=== PATIENT | female | born 2000 | race Caucasian/White ===

== ENCOUNTER → 2019-08-25 | Outpatient (CLI) | payer BC, MEDICAID ==
[2019-08-25 10:51] LABS: HEMOGLOBIN 11.7 G/DL (11.5-16.0); MEAN CORPUSCULAR HEMOGLOBIN 28 PG (25-34); WHITE BLOOD COUNT 4.3 10^3/uL (4.3-11.0)
[2019-08-25 10:52] LABS: BASOPHILS % (AUTO) 0 % (0-10); EOSINOPHILS # (AUTO) 0.2 10^3/uL (0.0-0.3); EOSINOPHILS % (AUTO) 5 % (0-10); HEMATOCRIT 35 % (35-52); LYMPHOCYTES # (AUTO) 1.5 X 10^3 (1.0-4.0); LYMPHOCYTES % (AUTO) 35 % (12-44); MEAN CORPUSCULAR HGB CONC 34 G/DL (32-36); MEAN CORPUSCULAR VOLUME 84 FL (80-99); MEAN PLATELET VOLUME 9.5 FL (7.4-10.4); MONOCYTES # (AUTO) 0.2 X 10^3 (0.0-1.0); MONOCYTES % (AUTO) 5 % (0-12); NEUTROPHILS # (AUTO) 2.3 X 10^3 (1.8-7.8); NEUTROPHILS % (AUTO) 55 % (42-75); PLATELET COUNT 178 10^3/uL (130-400); RED CELL DISTRIBUTION WIDTH 11.9 % (10.0-14.5)
== END ==
LOC: LAB FS 10:09
PROVIDERS: ATTEND Family Medicine
DX: Z34.80 Encounter for supervision of other normal pregnancy, unspecified trimester (principal); Z3A.00 Weeks of gestation of pregnancy not specified
CPT/HCPCS: 36415; 80055; 86703; 87077; 87088

== ENCOUNTER → 2019-09-22 | Outpatient (CLI) | payer BC, MEDICAID | LOC: LAB FS 15:37 | PROVIDERS: ATTEND Family Medicine | DX: Z34.90 Encounter for supervision of normal pregnancy, unspecified, unspecified trimester (principal); Z3A.00 Weeks of gestation of pregnancy not specified | CPT/HCPCS: 87491; 87591 ==

== ENCOUNTER → 2019-11-27 | Outpatient (CLI) | payer BC, MEDICAID | LOC: LAB FS 16:21 | PROVIDERS: ATTEND Family Medicine | DX: Z34.82 Encounter for supervision of other normal pregnancy, second trimester (principal) | CPT/HCPCS: 36415; 82105; 84702; 86336 ==

== ENCOUNTER 2020-01-14 23:51 | Emergency (ER) | payer BC, MEDICAID ==
[~2020-01-14] VITALS: Ht 154.9 cm; Wt 85.3 kg
--- NOTE | 2020-01-14 23:54 | ED General ---
General Stated Complaint: RASH Source of Information: Patient History of Present Illness Date Seen by Provider: Jan 14, 2020 Time Seen by Provider: 23:54 Initial Comments Patient is a 19 y/o female who is 27 weeks gestation and comes to the ER today c/o urticarial rash. She had onset of symptoms around 2 pm earlier today. Sx started on wrists and have expanded to arms, thighs, and torso. No new exposures that she is aware of. No prior history of allergies, asthma, or similar reactions. She has taken some benadryl today without relief of symptoms. No swelling of the lips, tongue or airway. Allergies and Home Medications Allergies Coded Allergies: No Known Drug Allergies (Unverified , 01/15/20) Home Medications Loratadine 10 Mg Tablet, 10 MG PO DAILY Prescribed by: DELGADO MEDRANO on 01/15/20 0044 Prednisone 20 Mg Tab, 40 MG PO DAILY Prescribed by: DELGADO MEDRANO on 01/15/20 0043 Patient Home Medication List Home Medication List Reviewed: Yes Review of Systems Review of Systems Constitutional: no symptoms reported EENTM: no symptoms reported Respiratory: no symptoms reported Cardiovascular: no symptoms reported : Yes Musculoskeletal: no symptoms reported Skin: see HPI Physical Exam Vital Signs Vital Signs - First Documented 01/15/20 00:01 Temp 36.3 Pulse 73 Resp 17 B/P (MAP) 113/66 (82) O2 Delivery Room Air Capillary Refill : Height, Weight, BMI Height: '" Weight: lbs. oz. kg; BMI Method: General Appearance: No Apparent Distress, WD/WN HEENT: PERRL/EOMI Neck: Supple Respiratory: Lungs Clear Cardiovascular: Regular Rate, Rhythm, No Murmur Skin: Other (urticarial rash over proximal thighs, torso, wrists, arms. No airway involvement) Progress/Results/Core Measures Suspected Sepsis SIRS Temperature: Pulse: Respiratory Rate: Blood Pressure / Mean: Results/Orders My Orders Orders - DELGADO MEDRANO DO Famotidine Injection (Pepcid Injection) (01/15/20 00:15) Diphenhydramine Injection (Benadryl Inje (01/15/20 00:15) Methylprednisolone Sod Succ (Solu-Medrol (01/15/20 00:15) Ns Iv 1000 Ml (Sodium Chloride 0.9%) (01/15/20 00:15) Ed Iv/Invasive Line Start (01/15/20 00:07) Medications Given in ED Current Medications Medications Dose Ordered Sig/Amor Route Start Time Stop Time Status Last Admin Dose Admin Diphenhydramine HCl 25 mg ONCE ONCE IM 01/15/20 00:15 01/15/20 00:16 DC 01/15/20 00:21 25 MG Famotidine 20 mg ONCE ONCE IVP 01/15/20 00:15 01/15/20 00:16 DC 01/15/20 00:21 20 MG Methylprednisolone Sodium Succinate 125 mg ONCE ONCE IVP 01/15/20 00:15 01/15/20 00:16 DC 01/15/20 00:21 125 MG Vital Signs/I&O 01/15/20 00:01 Temp 36.3 Pulse 73 Resp 17 B/P (MAP) 113/66 (82) O2 Delivery Room Air Capillary Refill : Progress Note : Time: 00:19 Progress Note Patient is examined on arrival to her room. Urticarial rash in areas described but no airway involvement. No related complaints. Will place iv and treat with solumedrol, pepcid, benadryl. 00:30: Patient now with visibly improving symptoms and subjectively feels better. Discharged home with Rx for short course of prednisone and advised to take only if her symptoms persisted. Also claritin and encouraged to continue to use benadryl as needed. Return to ER as needed. Departure Impression Primary Impression: Urticaria Disposition: 01 HOME, SELF-CARE Condition: Improved Departure-Patient Inst. Scripts Loratadine (Claritin) 10 Mg Tablet 10 MG PO DAILY for 7 Days, #10 TAB Prov: DELGADO MEDRANO DO 01/15/20 Prednisone (Prednisone) 20 Mg Tab 40 MG PO DAILY for 5 Days, #10 TAB 0 Refills Prov: DELGADO MEDRANO DO 01/15/20 DELGADO MEDRANO DO Jan 14, 2020 23:54
--- OUTSIDE RECORDS SUMMARY | 2020-01-14 23:59 | XMS REPORT | Continuity of Care Document ---
Author Organization Unknown Address Unknown Phone Unavailable Allergies There is no data. Medications There is no data. Problems Date Dx Coded Attending Type Code Diagnosis Diagnosed By 08/30/2019 OLE BOND MD Ot Z34.80 ENCOUNTER FOR SUPRVSN OF NORMAL PREGNANC 08/30/2019 OLE BOND MD Ot Z3A.00 WEEKS OF GESTATION OF NOT SPEC 09/21/2019 OLE BOND MD Ot Z34.80 ENCOUNTER FOR SUPRVSN OF NORMAL PREGNANC 09/21/2019 OLE BOND MD Ot Z3A.00 WEEKS OF GESTATION OF NOT SPEC 09/22/2019 OLE BOND MD Ot Z34.80 ENCOUNTER FOR SUPRVSN OF NORMAL PREGNANC 09/22/2019 OLE BOND MD Ot Z3A.00 WEEKS OF GESTATION OF NOT SPEC 09/28/2019 OLE BOND MD Ot Z34.80 ENCOUNTER FOR SUPRVSN OF NORMAL PREGNANC 09/28/2019 OLE BOND MD Ot Z3A.00 WEEKS OF GESTATION OF NOT SPEC 09/28/2019 OLE BOND MD Ot Z34.90 ENCNTR FOR SUPRVSN OF NORMAL , 09/28/2019 OLE BOND MD Ot Z3A.00 WEEKS OF GESTATION OF NOT SPEC 09/30/2019 OLE BOND MD Ot Z34.80 ENCOUNTER FOR SUPRVSN OF NORMAL PREGNANC 09/30/2019 OLE BOND MD Ot Z3A.00 WEEKS OF GESTATION OF NOT SPEC 10/11/2019 OLE BOND MD Ot Z34.80 ENCOUNTER FOR SUPRVSN OF NORMAL PREGNANC 10/11/2019 OLE BOND MD Ot Z3A.00 WEEKS OF GESTATION OF NOT SPEC 10/12/2019 OLE BOND MD Ot Z34.90 ENCNTR FOR SUPRVSN OF NORMAL , 10/12/2019 OLE BOND MD Ot Z3A.00 WEEKS OF GESTATION OF NOT SPEC 10/14/2019 OLE BOND MD Ot Z34.90 ENCNTR FOR SUPRVSN OF NORMAL , 10/14/2019 OLE BOND MD Ot Z3A.00 WEEKS OF GESTATION OF NOT SPEC 10/24/2019 OLE BOND MD Ot Z34.90 ENCNTR FOR SUPRVSN OF NORMAL , 10/24/2019 OLE BOND MD Ot Z3A.00 WEEKS OF GESTATION OF NOT SPEC 11/29/2019 OLE BOND MD Ot Z34.82 ENCOUNTER FOR SUPRVSN OF NORMAL PREGNANC 12/11/2019 OLE BOND MD Ot Z34.80 ENCOUNTER FOR SUPRVSN OF NORMAL PREGNANC 12/11/2019 OLE BOND MD Ot Z3A.00 WEEKS OF GESTATION OF NOT SPEC 12/11/2019 OLE BOND MD Ot Z34.90 ENCNTR FOR SUPRVSN OF NORMAL , 12/11/2019 OLE BOND MD Ot Z3A.00 WEEKS OF GESTATION OF NOT SPEC 12/11/2019 OLE BOND MD Ot Z34.82 ENCOUNTER FOR SUPRVSN OF NORMAL PREGNANC 12/27/2019 OLE BOND MD Ot Z34.82 ENCOUNTER FOR SUPRVSN OF NORMAL PREGNANC 12/29/2019 OLE BOND MD Ot Z34.82 ENCOUNTER FOR SUPRVSN OF NORMAL PREGNANC Procedures There is no data. Results Test Result Range Chlamydia trachomatis DNA detection by p robe and signal amplification method - 09/22/19 15:30 Chlamydia trachomatis DNA detection by p robe and target amplification method Not Detected Not Detected Neisseria gonorrhoeae DNA detection by p robe and signal amplification method - 09/22/19 15:30 Gonorrhea amp DNA-urine Not Detected No t Detected Encounters ACCT No. Visit Date/Time Discharge Status Pt. Type Provider Facility Loc./Unit Complaint [id number] 11/27/2019 16:21:00 020 23:59:59 CLS Outpatient OLE BOND MD [facility] FS Z34.82 [id number] 09/22/2019 15:37:00 020 23:59:59 CLS Outpatient RONDA MERIDA, OLE Jhaveri [facility] FS [id number] 08/25/2019 10:09:00 020 23:59:59 CLS Outpatient RONDA MERIDA, OLE Jhaveri [facility] FS Z34.80
[2020-01-15] MEDS ORDERED: NS IV 1000 ML 1,000 ML IV SCH (00:15)
[2020-01-15] MEDS ORDERED: FAMOTIDINE 20MG/2ML IV (PEPCID) IVP ONE (00:15)
[2020-01-15] MEDS ORDERED: diphenhydrAMINE 50 MG/ML INJ (BENADRYL) IM ONE (00:15)
[2020-01-15] MEDS ORDERED: methylPREDNISolone 125 MG (Solu-MEDROL) VIAL IVP ONE (00:15)
[2020-01-15] MEDS ORDERED: PRD20T PO (00:43)
[2020-01-15] MEDS ORDERED: LORA10TA76 PO (00:44)
[2020-01-15 00:57] VITALS: BP 118/72
== END 2020-01-15 00:57 | disposition home or self-care (01) ==
LOC: EDUNIT# 23:51 → ER FS 23:54
DX: O99.712 Diseases of the skin and subcutaneous tissue complicating pregnancy, second trimester (principal); L50.9 Urticaria, unspecified; Z3A.27 27 weeks gestation of pregnancy

== ENCOUNTER → 2020-01-26 | Outpatient (CLI) | payer BC, MEDICAID ==
[~2020-01-26] MED LIST: LORA10TA76 PO; PRD20T PO
[2020-01-26 16:53] LABS: HEMOGLOBIN 9.7 G/DL (11.5-16.0); MEAN PLATELET VOLUME 8.8 FL (7.4-10.4); RED CELL DISTRIBUTION WIDTH 12.8 % (10.0-14.5)
== END ==
LOC: LAB FS 15:52
PROVIDERS: ATTEND Family Medicine
DX: Z34.83 Encounter for supervision of other normal pregnancy, third trimester (principal); Z3A.00 Weeks of gestation of pregnancy not specified
CPT/HCPCS: 36415; 82950; 85027; 86780

== ENCOUNTER 2020-03-12 21:28 | Outpatient (CLI) | payer BC, MEDICAID ==
[~2020-03-12] VITALS: Ht 157.5 cm; Wt 88.5 kg
--- NOTE | 2020-03-12 21:35 | NUR ---
JENNIFER MONTOYA presented to unit via ambulatory from ED, accompanied by grandmother , with c/o CONTRACTIONS. JENNIFER MONTOYA weighed, gowned, voided, and to bed. EFHM and TOCO applied, VS taken. JENNIFER MONTOYA oriented to bed controls, call light, TV, heat, and A/C controls. above and further assessments carried out per hmichael maxwell.
[2020-03-12 22:06] VITALS: BP 115/64
[2020-03-12 22:10] VITALS: BP 115/64
--- NOTE | 2020-03-12 22:11 | NUR ---
Pt c/o ctx since 1600. States they have been irregular. Pt has not timed her contractions and denies any pain at this time. States with her last delivery she was dilated to 5cm on her day of induction and is concerned she wont feel ctx when she goes into labor. SVE performed, cervix closed, thick. Pt is unable to void at this time.
[2020-03-12] MEDS ORDERED: FERR-84 PO (22:16)
[2020-03-12] MEDS ORDERED: PREN-8 PO (22:16)
--- NOTE | 2020-03-12 22:52 | NUR ---
notified of pt's arrival and complaints. tracing review with Dr. Martinez still denies any pain. Discharge order received.
--- NOTE | 2020-03-12 23:05 | NUR ---
Discharge instructions verbalized with pt. Labor precautions given. Pt will follow up with in the office. Pt dc'd home with family at side.
--- NOTE | 2020-03-13 08:14 | Physician Query-Final Dx ---
Clinic Account Progress/Dx Physician Query: Please give diagnosis Please include # weeks gestation Date of Service Mar 12, 2020 at 21:28 JOCELIN DARDEN Mar 13, 2020 08:14
== END 2020-03-12 23:05 | disposition home or self-care (01) ==
LOC: WSo 21:28 → LDRP 21:28 → WSo 23:05
PROVIDERS: ATTEND Family Medicine
DX: O62.9 Abnormality of forces of labor, unspecified (principal); Z3A.35 35 weeks gestation of pregnancy

== ENCOUNTER 2020-03-30 19:39 | Outpatient (CLI) | payer BC, MEDICAID ==
[~2020-03-30] VITALS: Ht 157.4 cm; Wt 91.3 kg
[~2020-03-30 19:39] MED LIST changes: +FERR-84 PO; +PREN-8 PO
--- NOTE | 2020-03-30 19:44 | NUR ---
JENNIFER MONTOYA presented to unit via ambulation from ED, with c/o CONTRACTIONS. JENNIFER MONTOYA weighed, gowned, voided, and to bed. EFHM and TOCO applied, VS taken. JENNIFER MONTOYA oriented to bed controls, call light, TV, heat, and A/C controls.
[2020-03-30 20:30] VITALS: BP 115/70
[2020-03-30 21:02] LABS: BILIRUBIN,URINE NEGATIVE (NEGATIVE); CLARITY,URINE CLEAR; COLOR,URINE YELLOW; GLUCOSE, URINE (UA) NEGATIVE (NEGATIVE); KETONES,URINE NEGATIVE (NEGATIVE); LEUKOCYTE ESTERASE ,URINE 2+ (NEGATIVE); NITRITE,URINE NEGATIVE (NEGATIVE); PROTEIN,URINE NEGATIVE (NEGATIVE)
[2020-03-30 21:16] LABS: BACTERIA,URINE FEW /HPF; RBC,URINE 0-2 /HPF
--- NOTE | 2020-03-30 22:16 | NUR ---
Discharge instructions reviewed with patient. All patient's questions answered. Pt denies any concerns. Encouraged to call with any questions or concerns. Signature sheet signed, placed on chart. Pt denied wanting wheelchair. Pt ambulating off unit at time to private vehicle. No distress noted.
[2020-03-30 22:34] VITALS: BP 115/70
[2020-04-03] MEDS ORDERED: IBUP-844 PO (12:06)
== END 2020-03-30 22:16 | disposition home or self-care (01) ==
LOC: LDRP 19:39 → WSo 19:39
PROVIDERS: ATTEND Obstetrics & Gynecology
DX: O62.9 Abnormality of forces of labor, unspecified (principal); Z3A.37 37 weeks gestation of pregnancy
CPT/HCPCS: 81000; G0463; 99213

== ENCOUNTER 2020-07-26 01:08 | Emergency (ER) | payer BC, MEDICAID ==
[~2020-07-26] VITALS: Ht 154.9 cm; Wt 72.6 kg
[~2020-07-26 01:08] MED LIST changes: +IBUP-844 PO
[2020-07-26 01:48] VITALS: BP_SYST 113; BP_SYST 117; BP_SYST 119; BP_DIAS 65; BP_DIAS 67; BP_DIAS 68
--- NOTE | 2020-07-26 01:51 | ED General ---
General Chief Complaint: Neurological Problems Stated Complaint: WEAKNESS Nursing Triage Note: PT AMBULATE TO ROOM FS02 WITH C/O WEAKNESS X1 WEEK, CHEST TIGHTNESS STARTING YESTERDAY, NAUSEA, AND SPOTS IN HER VISION. PT STATES THAT SHE HAS CONTACTED PER PCP AND WAS NOT ABLE TO GET AN APPT UNTIL "I THINK" NEXT WEEK. Nursing Sepsis Screen: No Definite Risk Source of Information: Patient History of Present Illness Date Seen by Provider: Jul 26, 2020 Time Seen by Provider: 01:09 Initial Comments 19 yo female presenting to the ED with complaints of feeling weak for over a week. She has been feeling like she was going to pass out and like she was dizzy, especially with standing and changing positions. She has stumbled a few times and had to catch herself to keep from falling. She had noticed spots in her vision and has felt more light headed. She thought this might be related to her iron deficiency anemia that started during . She delivered her baby about 4 months ago. She feels like she is taking 5 times the amount of iron that a person is supposed to take because Dr. Bond is having her take 65 mg Iron pills twice a day, so the patient cut back to just once a day on her own. Since yesterday the patient has felt like she had chest tightness, nausea and low back pains. She denies cough, fever, chills, pain with urination, vaginal bleeding, diarrhea. She felt like was going to pass out and reports that when she called Dr. Bond's clinic during the day on they could not get her an appointment to be seen until next week. She is very concerned that she is taking too much Iron and it is causing her to feel this way and thinks she needs her iron levels checked so she came in to be seen in the ED tonight when she felt like she was going to pass out again. Allergies and Home Medications Allergies Coded Allergies: No Known Drug Allergies (Unverified , 01/15/20) Home Medications Ibuprofen 600 Mg Tablet, 600 MG PO Q6HR Prescribed by: OLE BOND on 04/03/20 1206 Patient Home Medication List Home Medication List Reviewed: Yes Review of Systems Review of Systems Constitutional: see HPI; No chills; dizziness (with standing and changing positions); No fever; weakness (general) EENTM: see HPI; No eye pain Respiratory: see HPI (chest tightness); No cough, No short of breath Cardiovascular: see HPI; No syncope (near syncope sensation) Gastrointestinal: nausea; No vomiting Genitourinary: No dysuria Musculoskeletal: see HPI, back pain (muscles in low back are tender to palpation) Skin: no symptoms reported Psychiatric/Neurological: Anxiety (worried about feeling like she might pass out) Hematologic/Lymphatic: Anemia (reports iron deficient anemia and not having repeat testing done for over 6 months); Denies Easy Bleeding, Denies Easy Bruising Past Myowfsq-Hbdksp-Welzui Hx Past Med/Social Hx: Reviewed Nursing Past Med/Soc Hx Patient Social History Alcohol Use: Denies Use Smoking Status: Never a Smoker 2nd Hand Smoke Exposure: No Recent Infectious Disease Expo: No Recent Hopitalizations: No Immunizations Up To Date PED Vaccines UTD: No Date of Influenza Vaccine: Apr 01, 2020 Seasonal Allergies Seasonal Allergies: Yes Past Medical History Surgeries: Yes (RIGHT ARM FX) Orthopedic Respiratory: No Cardiac: No Neurological: No Female Reproductive Disorders: Denies Sexually Transmitted Disease: No HIV/AIDS: No Genitourinary: No Gastrointestinal: No Musculoskeletal: Yes (RIGHT ARM FX) Fractures Endocrine: No HEENT: No Cancer: No Psychosocial: Yes (no current medications) Anxiety, Depression Integumentary: Yes Eczema Blood Disorders: Yes (low iron) Adverse Reaction/Blood Tranf: No Family Medical History Psychosocial problem 19 FATHER (depression) Sinus bradycardia G8 BROTHER Thyroid disease 19 MOTHER Physical Exam Vital Signs Vital Signs - First Documented 07/26/20 01:20 Temp 36.4 Pulse 85 Resp 18 B/P (MAP) 121/78 (92) O2 Delivery Room Air Capillary Refill : Less Than 3 Seconds Height, Weight, BMI Height: '" Weight: lbs. oz. kg; 30.00 BMI Method: General Appearance: No Apparent Distress, WD/WN, Anxious HEENT: PERRL/EOMI, Normal ENT Inspection; No Photophobia Neck: Full Range of Motion, Normal Inspection, Non Tender, Supple Respiratory: Chest Non Tender, Lungs Clear, Normal Breath Sounds, No Accessory Muscle Use, No Respiratory Distress Cardiovascular: Regular Rate, Rhythm, No Edema, No JVD, No Murmur, Normal Peripheral Pulses Gastrointestinal: Normal Bowel Sounds, No Pulsatile Mass, Non Tender, Soft Rectal: Deferred Back: No CVA Tenderness, No Vertebral Tenderness, Other (tender to palpation ov er the muscles in the lower back) Extremity: Normal Capillary Refill, Normal Inspection, Normal Range of Motion, Non Tender, No Pedal Edema Neurologic/Psychiatric: Alert, Oriented x3, No Motor/Sensory Deficits, 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; No Abnormal Gait; Other (anxious) Skin: Normal Color, Warm/Dry Progress/Results/Core Measures Suspected Sepsis Recent Fever Within 48 Hours: No Infection Criteria Present: None New/Unexplained Altered Menta: No Sepsis Screen: No Definite Risk SIRS Temperature: Pulse: 85 Respiratory Rate: 18 Laboratory Tests 07/26/20 01:41: White Blood Count 7.3 Blood Pressure 121 /78 Mean: 92 Laboratory Tests 07/26/20 01:41: Creatinine 0.83, INR Comment 1.0, Platelet Count 289, Total Bilirubin 0.2 Results/Orders Lab Results Laboratory Tests Test 07/26/20 01:41 07/26/20 01:52 Range/Units White Blood Count 7.3 4.3-11.0 10^3/uL Red Blood Count 4.49 4.35-5.85 10^6/uL Hemoglobin 12.8 11.5-16.0 G/DL Hematocrit 39 35-52 % Mean Corpuscular Volume 87 80-99 FL Mean Corpuscular Hemoglobin 29 25-34 PG Mean Corpuscular Hemoglobin Concent 33 32-36 G/DL Red Cell Distribution Width 13.0 10.0-14.5 % Platelet Count 289 130-400 10^3/uL Mean Platelet Volume 9.1 7.4-10.4 FL Immature Granulocyte % (Auto) 0 % Neutrophils (%) (Auto) 45 42-75 % Lymphocytes (%) (Auto) 45 H 12-44 % Monocytes (%) (Auto) 7 0-12 % Eosinophils (%) (Auto) 2 0-10 % Basophils (%) (Auto) 1 0-10 % Neutrophils # (Auto) 3.3 1.8-7.8 X 10^3 Lymphocytes # (Auto) 3.3 1.0-4.0 X 10^3 Monocytes # (Auto) 0.5 0.0-1.0 X 10^3 Eosinophils # (Auto) 0.2 0.0-0.3 10^3/uL Basophils # (Auto) 0.1 0.0-0.1 10^3/uL Immature Granulocyte # (Auto) 0.0 0.0-0.1 10^3/uL Prothrombin Time 13.1 12.2-14.7 SEC INR Comment 1.0 0.8-1.4 Activated Partial Thromboplast Time 30 24-35 SEC Sodium Level 138 135-145 MMOL/L Potassium Level 4.1 3.6-5.0 MMOL/L Chloride Level 100 98-107 MMOL/L Carbon Dioxide Level 28 21-32 MMOL/L Anion Gap 10 5-14 MMOL/L Blood Urea Nitrogen 15 7-18 MG/DL Creatinine 0.83 0.60-1.30 MG/DL Estimat Glomerular Filtration Rate > 60 BUN/Creatinine Ratio 18 Glucose Level 99 70-105 MG/DL Calcium Level 9.7 8.5-10.1 MG/DL Corrected Calcium 8.5-10.1 MG/DL Magnesium Level 2.1 1.6-2.4 MG/DL Total Bilirubin 0.2 0.1-1.0 MG/DL Aspartate Amino Transf (AST/SGOT) 14 5-34 U/L Alanine Aminotransferase (ALT/SGPT) 11 0-55 U/L Alkaline Phosphatase 134 40-136 U/L Troponin I < 0.30 <0.30 NG/ML Pro-B-Type Natriuretic Peptide 11.5 <75.0 PG/ML Total Protein 8.3 H 6.4-8.2 GM/DL Albumin 5.1 H 3.2-4.5 GM/DL Lipase 24 8-78 U/L Urine Color YELLOW Urine Clarity CLEAR Urine pH 6.5 5-9 Urine Specific [place] 1.010 L 1.016-1.022 Urine Protein NEGATIVE NEGATIVE Urine Glucose (UA) NEGATIVE NEGATIVE Urine Ketones NEGATIVE NEGATIVE Urine Nitrite NEGATIVE NEGATIVE Urine Bilirubin NEGATIVE NEGATIVE Urine Urobilinogen 0.2 < = 1.0 MG/DL Urine Leukocyte Esterase NEGATIVE NEGATIVE Urine RBC (Auto) NEGATIVE NEGATIVE Urine RBC NONE /HPF Urine WBC NONE /HPF Urine Squamous Epithelial Cells 2-5 /HPF Urine Crystals NONE /LPF Urine Bacteria NEGATIVE /HPF Urine Casts NONE /LPF Urine Mucus NEGATIVE /LPF Urine Culture Indicated NO My Orders Orders - DAVID HINKLE MD Cbc With Automated Diff (07/26/20 01:37) Magnesium (07/26/20 01:37) Chest 1 View Ap/Pa Only (07/26/20 01:37) Ekg Tracing (07/26/20 01:37) Comprehensive Metabolic Panel (07/26/20 01:37) Protime With Inr (07/26/20 01:37) Partial Thromboplastin Time (07/26/20 01:37) Monitor-Rhythm Ecg Trace Only (07/26/20 01:37) Ed Iv/Invasive Line Start (07/26/20 01:37) Lipase (07/26/20 01:37) Troponin I Fs (07/26/20 01:37) Probnp Fs (07/26/20 01:37) Orthostatic Vital Signs (Adult (07/26/20 01:37) Ua Culture If Indicated (07/26/20 01:39) Ct Head Wo (07/26/20 01:39) Ct Abdomen/Pelvis Wo (07/26/20 01:39) Urine Bedside (07/26/20 01:58) Vital Signs/I&O 07/26/20 07/26/20 01:20 01:48 Temp 36.4 Pulse 85 64 73 93 Resp 18 B/P (MAP) 121/78 (92) 117/67 (84) 119/65 (83) 113/68 (83) O2 Delivery Room Air Capillary Refill : Less Than 3 Seconds Blood Pressure Mean: 92 Progress Note #1: Progress Note Check labs to evaluate her blood count since she feels like she is anemic, cardiac enzymes to look for cardiac source of her near syncope, electrolytes and chemistry panel to look for hepatic, renal, electrolyte issues to explain her near syncope issues. Ordered orthostatic vital signs to look for signs of dehydration. Urinalysis to look for UTI or dehydration. Electrocardiogram to look for an arrhythmia or signs of cardiac ischemia. Chest x-ray to look for signs of infection, cardiomegaly, heart failure, lung mass, pulmonary abnormality to account for her chest tightness and near syncope. CT scan of her head to look for reasons of her headache and spots in her vision as well as dizziness and near syncope. CT of her abdomen and pelvis to look for reasons of her back pain as well as to help rule out any abdominal or pelvic source of her issues causing possible anemia, tightness into her chest, near syncope. Differential diagnosis list would include migraine headache, brain mass, myocardial infarction, cardiac arrhythmia, anemia, dehydration, UTI, pneumonia, diverticulitis, , ectopic , hepatic failure, renal failure, hypothyroid, hyperthyroid, lung cancer with metastatic disease, leukemia. Progress Note #2: Progress Note labs show her WBC is normal and Hgb is 12.8 so she is not anemic. Her MCV is 87 so it does not appear to be consistent with iron deficient anemia. She has normal Chemistry panel with renal, hepatic and cardiac enzymes all without acute significant abnormality. Her electrocardiogram did not demonstrate any acute ischemic changes or ST elevation. Her chest x-ray was without acute abnormality. Urinalysis did not demonstrate any acute abnormality either and her urine test was negative. CT scan of head and abdomen pelvis without contrast did not demonstrate any acute abnormality on my review of the imaging. Awaiting report from the [facility] rad overnight radiologist. Progress Note #3: Progress Note Reading of CT head and abdomen pelvis from [facility] radiology did not demon strate any acute significant abnormality. They mentioned her urinary bladder wall might be slightly thickened and to correlate with her urinalysis however her UA did not demonstrate any acute significant abnormality. Also she had some slight debris in her gallbladder but had normal liver function test and no pain in her abdomen and no Garza sign. Reassured patient and reviewed her negative test results with her. Tried to review with the patient the positive fact that a lot of potential life threatening issues have been ruled out. Counseled on potential testing to be done next through her pcp such as possible holter monitor, thyroid testing, vitamin and iron levels, MRI/Neurology eval for migraines, Eye doctor testing for new glasses and eval of spots in her vision. ECG Initial ECG Impression Date: Jul 26, 2020 Initial ECG Impression Time: 01:43 Initial ECG Rate: 71 Initial ECG Rhythm: Normal Sinus Initial ECG Comparisson: No Previous ECG Available Comment Normal sinus rhythm with a heart rate of 71 bpm. MA interval [address] elevation. No prior tracing available for comparison. QT interval 404 ms with a QTc interval 439 ms. Diagnostic Imaging Diagonstic Imaging: Xray Plain Films/CT/US/NM/MRI: chest Comments On my review of her 1 view chest x-ray she has no acute process. There is no cardiomegaly or acute infiltrate. There is no pleural effusion. Reviewed: Reviewed by Me Diagonstic Imaging: CT Plain Films/CT/US/NM/MRI: head Comments No acute intracranial abnormality Read by radiologist Dr. Clau Beckman MD at 0225 and faxed at [phone] Reviewed: Reviewed [place] Study Diagonstic Imaging: CT Plain Films/CT/US/NM/MRI: abdomen, pelvis Comments Impression: 1. Thickening of the urinary bladder is concerning for cystitis. Consider correlation with urinalysis. 2. Bowel is nondilated. No free air, diverticulitis, or appendicitis. 3. Debris is present in the partially contracted gallbladder. 4. Solid organs are unremarkable in a noninfused exam. Read by radiologist Dr. Clau Beckman MD at 0225 and faxed at [phone] Reviewed: Reviewed [place] Study Departure Impression Primary Impression: Near syncope Additional Impressions: Frontal headache Chest tightness Strain of muscle, fascia and tendon of lower back, initial encounter Disposition: HOME, SELF-CARE Condition: Stable Departure-Patient Inst. Decision time for Depature: 03:39 Referrals: OLE BOND MD (PCP/Family) Primary Care Physician Patient Instructions: Chest Pain That Is Not Caused by the Heart (DC), Headache, Adult ED, Home Headache Remedies, Muscle Strain ED, Near Fainting (DC) Add. Discharge Instructions: Stay well-hydrated and try to get plenty of rest. Your blood work tonight showed that your hemoglobin was good and you are not anemic. The CT scans and other labs including heart tests were all looking okay. Check back with Dr. Bond or clinic to see about additional testing. You might consider having testing done to look at thyroid, heart for possible arrhythmia or irregular heart beats, vitamin and iron levels. Neurology or MRI testing for possible migraine evaluation, Eye doctor testing or evaluation for the spots in your vision and dizziness would be another possible evaluation. All discharge instructions reviewed with patient and/or family. Voiced understanding. DAVID HINKLE MD Jul 26, 2020 01:50
[2020-07-26 01:57] LABS: BASOPHILS # (AUTO) 0.1 10^3/uL (0.0-0.1); BASOPHILS % (AUTO) 1 % (0-10); EOSINOPHILS # (AUTO) 0.2 10^3/uL (0.0-0.3); EOSINOPHILS % (AUTO) 2 % (0-10); HEMATOCRIT 39 % (35-52); HEMOGLOBIN 12.8 G/DL (11.5-16.0); LYMPHOCYTES # (AUTO) 3.3 X 10^3 (1.0-4.0); LYMPHOCYTES % (AUTO) 45 % (12-44); MEAN CORPUSCULAR HEMOGLOBIN 29 PG (25-34); MEAN CORPUSCULAR HGB CONC 33 G/DL (32-36); MEAN CORPUSCULAR VOLUME 87 FL (80-99); MEAN PLATELET VOLUME 9.1 FL (7.4-10.4); MONOCYTES # (AUTO) 0.5 X 10^3 (0.0-1.0); MONOCYTES % (AUTO) 7 % (0-12); NEUTROPHILS # (AUTO) 3.3 X 10^3 (1.8-7.8); NEUTROPHILS % (AUTO) 45 % (42-75); PLATELET COUNT 289 10^3/uL (130-400); WHITE BLOOD COUNT 7.3 10^3/uL (4.3-11.0)
[2020-07-26 02:06] LABS: BACTERIA,URINE NEGATIVE /HPF; BILIRUBIN,URINE NEGATIVE (NEGATIVE); CLARITY,URINE CLEAR; COLOR,URINE YELLOW; GLUCOSE, URINE (UA) NEGATIVE (NEGATIVE); KETONES,URINE NEGATIVE (NEGATIVE); LEUKOCYTE ESTERASE ,URINE NEGATIVE (NEGATIVE); NITRITE,URINE NEGATIVE (NEGATIVE); PH,URINE 6.5 (5-9); PROTEIN,URINE NEGATIVE (NEGATIVE)
[2020-07-26 02:08] LABS: PROTHROMBIN TIME PATIENT 13.1 SEC (12.2-14.7)
[2020-07-26 02:23] LABS: ALANINE AMINOTRANSFERASE 11 U/L (0-55); ALBUMIN 5.1 GM/DL (3.2-4.5); ALKALINE PHOSPHATASE 134 U/L (40-136); BILIRUBIN,TOTAL 0.2 MG/DL (0.1-1.0); BUN/CREATININE RATIO 18; CALCIUM 9.7 MG/DL (8.5-10.1); CARBON DIOXIDE 28 MMOL/L (21-32); CHLORIDE 100 MMOL/L (98-107); CREATININE SERUM 0.83 MG/DL (0.60-1.30); GFR ESTIMATED > 60; GLUCOSE 99 MG/DL (70-105); LIPASE 24 U/L (8-78); MAGNESIUM 2.1 MG/DL (1.6-2.4); POTASSIUM 4.1 MMOL/L (3.6-5.0); SODIUM 138 MMOL/L (135-145); TOTAL PROTEIN 8.3 GM/DL (6.4-8.2)
[2020-07-26 03:42] VITALS: BP 113/64
--- NOTE | 2020-07-26 05:56 | Diagnostic Imaging Report ---
INDICATION: chest tightness, near syncope. TECHNIQUE: Single view chest 2:05 AM. CORRELATION STUDY: None FINDINGS: The heart size, mediastinal configuration and pulmonary vascularity are within normal limits. The lungs are clear with no consolidating infiltrate. There is no significant effusion or pneumothorax. IMPRESSION: 1. Negative appearing portable chest. Dictated by: Dictated on workstation # [id number]
--- NOTE | 2020-07-26 06:08 | Diagnostic Imaging Report ---
PROCEDURE: CT abdomen and pelvis without contrast. TECHNIQUE: Multiple contiguous axial images were obtained through the abdomen and pelvis without the use of intravenous contrast. Auto Exposure Controls were utilized during the CT exam to meet ALARA standards for radiation dose reduction. INDICATION: Weakness x1 week, chest tightness starting yesterday, nausea and spots in vision. CORRELATION STUDY: None. FINDINGS: LOWER THORAX: Clear. LIVER: Unremarkable. GALLBLADDER: Present and unremarkable. No bile duct dilatation. SPLEEN: Unremarkable. PANCREAS: Unremarkable. ADRENAL GLANDS: Unremarkable. KIDNEYS: Normal configuration. No calcification or obstruction. ABDOMINAL AORTA: Unremarkable, nonaneurysmal. GASTROINTESTINAL TRACT: No obstruction or inflammation. Normal appendix. Stomach distended with retained gastric contents likely owing to recent meal ingestion. URINARY BLADDER: Contracted likely accounting for some urinary bladder wall thickening. However, this is somewhat prominent. REPRODUCTIVE: Unremarkable. OSSEOUS STRUCTURES: There is prominent disc bulge and likely protrusion at L5-S1 level slightly greater to the right midline. Mild broad-based disc bulge L4-L5 level. OTHER: Prominent in number but non-pathologically enlarged mesenteric lymph nodes. IMPRESSION: 1. Question urinary bladder wall thickening versus accentuation by its decompressed state. If indicated, correlation with urinalysis to exclude cystitis. 2. Prominent mesenteric lymphadenopathy. 3. Disc bulge and likely protrusion at L5-S1 level. Initial report was provided by [facility]. Dictated by: Dictated on workstation # [id number]
--- NOTE | 2020-07-26 06:09 | Diagnostic Imaging Report ---
PROCEDURE: CT head without contrast. TECHNIQUE: Multiple contiguous axial images were obtained through the brain without the use of intravenous contrast. Auto Exposure Controls were utilized during the CT exam to meet ALARA standards for radiation dose reduction. INDICATION: Weakness x1 week, chest tightness starting yesterday, nausea and spots in vision. CORRELATION: None FINDINGS: There is no midline shift or mass effect. The ventricles and sulci are unremarkable. No evidence for acute intracranial hemorrhage, abnormal extra-axial fluid collections or cerebral edema is present. The basilar cisterns are unremarkable. The bony calvarium is intact. The visualized paranasal sinuses and mastoid air cells are clear. IMPRESSION: Negative appearing noncontrast CT of the head. Initial report was provided by [facility]. Dictated by: Dictated on workstation # [id number]
== END 2020-07-26 03:42 | disposition home or self-care (01) ==
LOC: EDUNIT# 01:08 → ER FS 01:11
DX: S39.012A Strain of muscle, fascia and tendon of lower back, initial encounter (principal); R55 Syncope and collapse; R51.9 Headache, unspecified; R07.89 Other chest pain; F41.9 Anxiety disorder, unspecified; X58.XXXA Exposure to other specified factors, initial encounter
CPT/HCPCS: 36415; 70450; 71045; 74176; 80053; 81000; 83690; 83735; 83880; 84484; 84703; 85025; 85610; 85730; 93005; 93041

== ENCOUNTER 2021-04-24 13:11 | Emergency (ER) | payer BC, MEDICAID ==
[~2021-04-24] VITALS: Ht 154 cm; Wt 72.0 kg
[2021-04-24] MEDS ORDERED: NS IV 1000 ML 1,000 ML IV SCH (13:30)
[2021-04-24 13:36] VITALS: BP_SYST 106; BP_SYST 113; BP_SYST 116; BP_DIAS 64; BP_DIAS 66; BP_DIAS 70
[2021-04-24 13:36] LABS: BILIRUBIN,URINE NEGATIVE (NEGATIVE); CLARITY,URINE SL CLOUDY; COLOR,URINE YELLOW; GLUCOSE, URINE (UA) NEGATIVE (NEGATIVE); KETONES,URINE NEGATIVE (NEGATIVE); LEUKOCYTE ESTERASE ,URINE NEGATIVE (NEGATIVE); NITRITE,URINE NEGATIVE (NEGATIVE); PH,URINE 7.5 (5-9); PROTEIN,URINE NEGATIVE (NEGATIVE)
--- NOTE | 2021-04-24 13:38 | ED General ---
General Chief Complaint: Dizziness/Syncope Stated Complaint: PASSING OUT Nursing Triage Note: PT REPORTS SHE HAS BEEN PASSING OUT FOR ABOUT 2 SECONDS FOR THE LAST MONTH. Source of Information: Patient History of Present Illness Date Seen by Provider: Apr 24, 2021 Time Seen by Provider: 13:18 Initial Comments 20-year-old female presenting with complaints of recurrent episodes of passing out for 2 to 3 seconds at a time. She states she has been getting dizzy as well. This is an going on for at least the last several weeks to a month. She had something similar back in July when she thought she was taking too much iron. She has not gone to see her primary care provider about these episodes in the last month. She states that she was also concerned because her mother has hypothyroidism and low blood sugar at times. She was concerned that maybe those might be contributing to her symptoms. She denies any cough, fever, chills, nausea, vomiting, chest pain, shortness of breath, abdominal pain, pain with urination. She has regular menstrual periods but she took a test at home that was negative. Her last menstrual period was a little over a month ago. She has been breast-feeding her child who is a little over a year old. She states she gets a little bit of nausea when she gets really dizzy. It seems to be worse when she stands up to walk. She denies any head injury or fall. She has been on Zoloft for the last 3 or 4 months and was unsure if that might be contributing to her symptoms. She was worried that her blood pressure was too low as well. She also mentioned that she thought she might have fluid in her ears because of allergies. Associated Systoms: No Chest Pain, No Cough, No Diaphoresis, No Fever/Chills; Headaches (Mild generalized aching at times); No Loss of Appetite, No Malaise; Nausea/Vomiting (Occasional nausea when the dizziness is severe but otherwise no vomiting); No Rash, No Seizure, No Shortness of Air; Syncope (Reports repeated episodes of passing out for a few seconds at a time) Allergies and Home Medications Allergies Coded Allergies: No Known Drug Allergies (Unverified , 01/15/20) Patient Home Medication List Home Medication List Reviewed: Yes Ferrous Sulfate (Iron) 325 Mg Tablet, 325 MG PO, (Reported) Entered as Rep[place] [address] Ibuprofen (Ibu) 600 Mg Tablet, 600 MG PO Q6HR Prescribed by: OLE BOND on 04/03/20 1206 Vit W-Ca,Fe,FA(<1 mg) ( Formula) 1 Each Tablet, 1 EACH PO, (Reported) Entered as Reported by: SWATHI DUMONT on 03/12/202215 Review of Systems Review of Systems Constitutional: see HPI EENTM: No epistaxis, No nose congestion Respiratory: No cough, No short of breath Cardiovascular: No chest pain, No edema, No palpitations Gastrointestinal: see HPI, nausea (Occasionally when the dizziness is severe) Genitourinary: No dysuria, No frequency Musculoskeletal: no symptoms reported Skin: No rash Psychiatric/Neurological: See HPI, Anxiety Past Svoxkrg-Rzuvqm-Gmulwl Hx Patient Social History Tobacco Use?: No Use of E-Cig and/or Vaping dev: No Substance use?: No Alcohol Use?: No Immunizations Up To Date PED Vaccines UTD: No Seasonal Allergies Seasonal Allergies: Yes Past Medical History Surgeries: Yes (RIGHT ARM FX) Orthopedic Respiratory: No Cardiac: No Neurological: No Female Reproductive Disorders: Denies Sexually Transmitted Disease: No HIV/AIDS: No Genitourinary: No Gastrointestinal: No Musculoskeletal: Yes (RIGHT ARM FX) Fractures Endocrine: No HEENT: No Cancer: No Psychosocial: Yes (no current medications) Anxiety, Depression Integumentary: Yes Eczema Blood Disorders: Yes (low iron) Adverse Reaction/Blood Tranf: No Family Medical History Psychosocial problem 19 FATHER (depression) Sinus bradycardia G8 BROTHER Thyroid disease 19 MOTHER Physical Exam Vital Signs Vital Signs - First Documented 04/24/21 13:18 Temp 36.0 Pulse 75 Resp 18 B/P (MAP) 109/73 (85) Pulse Ox 100 O2 Delivery Room Air Capillary Refill : Less Than 3 Seconds Height, Weight, BMI Height: '" Weight: lbs. oz. kg; 30.00 BMI Method: General Appearance: No Apparent Distress, WD/WN, Anxious HEENT: PERRL/EOMI, TMs Normal, Normal ENT Inspection, Pharynx Normal Neck: Full Range of Motion, Normal Inspection, Non Tender, Supple Respiratory: Chest Non Tender, Lungs Clear, Normal Breath Sounds Cardiovascular: Regular Rate, Rhythm, Normal Peripheral Pulses Extremity: Normal Capillary Refill, Normal Inspection, No Pedal Edema Neurologic/Psychiatric: Alert, Oriented x3 Skin: Normal Color, Warm/Dry Progress/Results/Core Measures Suspected Sepsis SIRS Temperature: Pulse: 75 Respiratory Rate: 18 Laboratory Tests 04/24/21 13:25: White Blood Count 5.8 Blood Pressure 109 /73 Mean: 85 Laboratory Tests 04/24/21 13:25: Creatinine 0.57L, Platelet Count 263, Total Bilirubin 0.3 Results/Orders Lab Results Laboratory Tests Test 04/24/21 13:20 04/24/21 13:25 Range/Units Urine Color YELLOW Urine Clarity SL CLOUDY Urine pH 7.5 5-9 Urine Specific [place] 1.010 L 1.016-1.022 Urine Protein NEGATIVE NEGATIVE Urine Glucose (UA) NEGATIVE NEGATIVE Urine Ketones NEGATIVE NEGATIVE Urine Nitrite NEGATIVE NEGATIVE Urine Bilirubin NEGATIVE NEGATIVE Urine Urobilinogen 0.2 < = 1.0 MG/DL Urine Leukocyte Esterase NEGATIVE NEGATIVE Urine RBC (Auto) NEGATIVE NEGATIVE Urine RBC NONE /HPF Urine WBC RARE /HPF Urine Squamous Epithelial Cells 2-5 /HPF Urine Crystals NONE /LPF Urine Bacteria FEW H /HPF Urine Casts NONE /LPF Urine Mucus MODERATE H /LPF Urine Culture Indicated NO Urine Opiates Screen NEGATIVE NEGATIVE Urine Oxycodone Screen NEGATIVE NEGATIVE Urine Methadone Screen NEGATIVE NEGATIVE Urine Propoxyphene Screen NEGATIVE NEGATIVE Urine Barbiturates Screen NEGATIVE NEGATIVE Ur Tricyclic Antidepressants Screen NEGATIVE NEGATIVE Urine Phencyclidine Screen NEGATIVE NEGATIVE Urine Amphetamines Screen NEGATIVE NEGATIVE Urine Methamphetamines Screen NEGATIVE NEGATIVE Urine Benzodiazepines Screen NEGATIVE NEGATIVE Urine Cocaine Screen NEGATIVE NEGATIVE Urine Cannabinoids Screen NEGATIVE NEGATIVE White Blood Count 5.8 4.3-11.0 10^3/uL Red Blood Count 4.32 3.80-5.11 10^6/uL Hemoglobin 12.4 11.5-16.0 g/dL Hematocrit 37 35-52 % Mean Corpuscular Volume 86 80-99 fL Mean Corpuscular Hemoglobin 29 25-34 pg Mean Corpuscular Hemoglobin Concent 33 32-36 g/dL Red Cell Distribution Width 13.1 10.0-14.5 % Platelet Count 263 130-400 10^3/uL Mean Platelet Volume 9.5 9.0-12.2 fL Immature Granulocyte % (Auto) 0 % Neutrophils (%) (Auto) 52 42-75 % Lymphocytes (%) (Auto) 39 12-44 % Monocytes (%) (Auto) 6 0-12 % Eosinophils (%) (Auto) 2 0-10 % Basophils (%) (Auto) 1 0-10 % Neutrophils # (Auto) 3.0 1.8-7.8 X 10^3 Lymphocytes # (Auto) 2.3 1.0-4.0 X 10^3 Monocytes # (Auto) 0.4 0.0-1.0 X 10^3 Eosinophils # (Auto) 0.1 0.0-0.3 10^3/uL Basophils # (Auto) 0.1 0.0-0.1 10^3/uL Immature Granulocyte # (Auto) 0.0 0.0-0.1 10^3/uL Sodium Level 139 135-145 MMOL/L Potassium Level 4.0 3.6-5.0 MMOL/L Chloride Level 103 98-107 MMOL/L Carbon Dioxide Level 27 21-32 MMOL/L Anion Gap 9 5-14 MMOL/L Blood Urea Nitrogen 11 7-18 MG/DL Creatinine 0.57 L 0.60-1.30 MG/DL Estimat Glomerular Filtration Rate 133 BUN/Creatinine Ratio 19 Glucose Level 86 70-105 MG/DL Calcium Level 9.5 8.5-10.1 MG/DL Corrected Calcium 8.5-10.1 MG/DL Total Bilirubin 0.3 0.1-1.0 MG/DL Aspartate Amino Transf (AST/SGOT) 13 5-34 U/L Alanine Aminotransferase (ALT/SGPT) 8 0-55 U/L Alkaline Phosphatase 135 40-136 U/L Total Protein 7.7 6.4-8.2 GM/DL Albumin 5.0 H 3.2-4.5 GM/DL Salicylates Level < 0.3 L 5.0-20.0 MG/DL Acetaminophen Level < 10 L 10-30 UG/ML Serum Alcohol < 10 <10 MG/DL My Orders Orders - DAVID HINKLE MD Ua Culture If Indicated (04/24/21 13:29) Cbc With Automated Diff (04/24/21 13:29) Comprehensive Metabolic Panel (04/24/21 13:29) Alcohol (04/24/21 13:29) Drug Screen Stat (Urine) (04/24/21 13:29) Acetaminophen (04/24/21 13:29) Salicylate (04/24/21 13:29) Ekg Tracing (04/24/21 13:29) Ed Iv/Invasive Line Start (04/24/21 13:29) Monitor-Rhythm Ecg Trace Only (04/24/21 13:29) Ns Iv 1000 Ml (Sodium Chloride 0.9%) (04/24/21 13:30) Orthostatic Vital Signs (Adult (04/24/21 13:29) Urine Bedside (04/24/21 13:29) Thyroid Stimulating Hormone (04/24/21 15:27) Vital Signs/I&O 04/24/21 04/24/21 04/24/21 13:18 13:36 15:33 Temp 36.0 36.0 Pulse 75 71 82 70 87 Resp 18 18 B/P (MAP) 109/73 (85) 116/70 (85) 109/65 106/64 (78) 113/66 (82) Pulse Ox 100 100 O2 Delivery Room Air Room Air Capillary Refill : Less Than 3 Seconds Blood Pressure Mean: 85 Progress Note #1: Progress Note Obtain electrocardiogram as well as basic labs. Monitor on telemetry monitoring while in the ED. Try giving IV fluids for hydration. Differential diagnosis would include dehydration, , UTI, sinusitis, anxiety, anemia Progress Note #2: Progress Note Electrocardiogram appears stable without acute significant abnormality. Appears similar to prior tracing from July when she presented with similar symptoms. Her labs all appear stable without acute significant abnormality. She continues to run hemoglobin around 12.4 12.5. Her urinalysis did not show infection or . Her chemistry panel was stable as well. Reassured patient and counseled on follow-up and return precautions. We will add on a TSH so it would be available for Dr. Bond. Encourage patient to follow-up through the clinic for continued symptoms in the meantime push fluids and rest. Advised that she could try taking a low-dose of 12.5 mg of meclizine or Antivert twice a day for up to 10 days to see if that might help with her symptoms as well ECG Initial ECG Impression Date: Apr 24, 2021 Initial ECG Impression Time: 13:23 Initial ECG Rate: 72 Initial ECG Rhythm: Normal Sinus Initial ECG Comparisson: Unchanged Comment Normal sinus rhythm with a heart rate of 72 bpm. MI interval [address] elevation. QT interval 374 ms with a QTc interval 410 ms. Appears similar to tracing from July 2020 when she presented with similar complaints Departure Impression Primary Impression: Dizziness Additional Impression: Near syncope Disposition: 01 HOME, SELF-CARE Condition: Stable Departure-Patient Inst. Decision time for Depature: 15:29 Referrals: OLE BOND MD (PCP/Family) Primary Care Physician Patient Instructions: Fainting, Adult ED, Dizziness, Adult ED Add. Discharge Instructions: Make sure you stay well hydrated and drink plenty of water. Follow up with Dr. Bond and the clinic for continued evaluation for your dizziness and episodes of passing out Try slowly changing positions when you go from sitting to standing and you might wait 30 seconds to a minute to let your body adjust to the change in position before you start moving. If you want to try a medicine you could try taking Meclizine 12.5 mg twice a day as needed for dizziness. You could take this for up to 10 days. All discharge instructions reviewed with patient and/or family. Voiced understanding. DAVID HINKLE MD Apr 24, 2021 13:38
[2021-04-24 13:43] LABS: BACTERIA,URINE FEW /HPF; WBC,URINE RARE /HPF
[2021-04-24 13:51] LABS: WHITE BLOOD COUNT 5.8 10^3/uL (4.3-11.0)
[2021-04-24 13:52] LABS: EOSINOPHILS % (AUTO) 2 % (0-10); HEMATOCRIT 37 % (35-52); HEMOGLOBIN 12.4 g/dL (11.5-16.0); LYMPHOCYTES % (AUTO) 39 % (12-44); MEAN CORPUSCULAR HEMOGLOBIN 29 pg (25-34); MEAN CORPUSCULAR HGB CONC 33 g/dL (32-36); MEAN CORPUSCULAR VOLUME 86 fL (80-99); MEAN PLATELET VOLUME 9.5 fL (9.0-12.2); MONOCYTES % (AUTO) 6 % (0-12); NEUTROPHILS % (AUTO) 52 % (42-75); PLATELET COUNT 263 10^3/uL (130-400)
[2021-04-24 13:53] LABS: BASOPHILS # (AUTO) 0.1 10^3/uL (0.0-0.1); BASOPHILS % (AUTO) 1 % (0-10); EOSINOPHILS # (AUTO) 0.1 10^3/uL (0.0-0.3); LYMPHOCYTES # (AUTO) 2.3 X 10^3 (1.0-4.0); MONOCYTES # (AUTO) 0.4 X 10^3 (0.0-1.0)
[2021-04-24 14:02] LABS: BILIRUBIN,TOTAL 0.3 MG/DL (0.1-1.0); BUN/CREATININE RATIO 19; CALCIUM 9.5 MG/DL (8.5-10.1); CARBON DIOXIDE 27 MMOL/L (21-32); CHLORIDE 103 MMOL/L (98-107); CREATININE SERUM 0.57 MG/DL (0.60-1.30); GFR ESTIMATED 133; GLUCOSE 86 MG/DL (70-105); SODIUM 139 MMOL/L (135-145)
[2021-04-24 14:03] LABS: ALANINE AMINOTRANSFERASE 8 U/L (0-55); ALKALINE PHOSPHATASE 135 U/L (40-136); TOTAL PROTEIN 7.7 GM/DL (6.4-8.2)
[2021-04-24 14:04] LABS: ACETAMINOPHEN < 10 UG/ML (10-30); SALICYLATE < 0.3 MG/DL (5.0-20.0)
[2021-04-24 14:06] LABS: AMPHETAMINE SCREEN, URINE NEGATIVE (NEGATIVE); BARBITURATE SCREEN URINE NEGATIVE (NEGATIVE); BENZODIAZEPINES SCREEN URINE NEGATIVE (NEGATIVE); CANNABINOID SCREEN, URINE NEGATIVE (NEGATIVE); COCAINE SCREEN URINE NEGATIVE (NEGATIVE); METHADONE STAT NEGATIVE (NEGATIVE); METHAMPHETAMINE SCREEN URINE S NEGATIVE (NEGATIVE); OPIATE SCREEN URINE NEGATIVE (NEGATIVE); OXYCODONE STAT NEGATIVE (NEGATIVE); PROPOXYPHENE STAT NEGATIVE (NEGATIVE); TRICYCLIC ANTIDEPRESSANTS SCRE NEGATIVE (NEGATIVE)
[2021-04-24 15:33] VITALS: BP 109/65
== END 2021-04-24 15:34 | disposition home or self-care (01) ==
LOC: EDUNIT# 13:11 → ER FS 13:12
DX: R42 Dizziness and giddiness (principal); R55 Syncope and collapse
CPT/HCPCS: 36415; 80053; 80306; 81000; 84443; 84703; 85025; 93005; 93041; 99284; G0480 ×3; 80320; 80329